=== PATIENT | female | born 1955 | race African-American/Black ===

== ENCOUNTER 2017-08-18 10:27 | Emergency (ER) | payer MEDICARE, MEDICAID ==
[2017-08-18 10:53] LABS: #Eosinphils 0.1 thou/uL (0.0-0.7); #Lymphocytes 2.4 thou/uL (1.20-3.40); #Monocytes 0.4 thou/uL (0.11-0.59); #Neutrophils 3.7 thou/uL (1.40-6.50); %Eosinophils 1.7 % (0.0-10.0); %Lymphocytes 36.2 % (21.0-51.0); %Monocytes 6.2 % (0.0-10.0); Hematocrit 37.6 % (36.0-47.0); Red Blood Cell (RBC) Count 4.17 mill/uL (4.20-5.40); White Blood Cell (WBC) Count 6.7 thou/uL (4.8-10.8)
[2017-08-18 11:19] LABS: Bilirubin Negative (Negative); Blood, Urine Negative (Negative); Glucose, Urine (Dipstick) Negative (Negative); Ketone, Urine Negative (Negative); Nitrite Negative (Negative); Protein, Urine (Dipstick) Negative (Neg-Trace)
[2017-08-18 11:25] LABS: Bacteria/HPF None Seen HPF (None Seen); Hyaline Casts/LPF 0-3 HYALINE CAST LPF (0-3 Hyaline); RBC/HPF 0-3 HPF (0-3); Squamous Epithelial 0-3 HPF (0-3); WBC/HPF 0-3 HPF (0-3)
--- NOTE | 2017-08-18 11:45 | RAD ---
CHEST ONE VIEW: HISTORY: Chest pain. COMPARISON: None. FINDINGS: AP upright chest shows a enlarged cardiac silhouette. The pulmonary vessels and hilum are normal. N o mass. No consolidation. No pneumothorax or osseous abnormalities. IMPRESSION: Cardiomegaly. No congestive heart failure. POS: [facility]
[2017-08-18 11:56] LABS: ALT (SGPT) 9 U/L (8-55); AST (SGOT) 14 U/L (5-34); Alkaline Phosphatase 86 U/L (40-150); Anion Gap 15 mmol/L (10-20); BUN (Urea Nitrogen) 7 mg/dL (9.8-20.1); Bilirubin, Total 0.3 mg/dL (0.2-1.2); CK (CPK) 60 U/L (29-168); Calc. Creatinine Clearance 0 mL/min (70-130); Calcium 8.7 mg/dL (7.8-10.44); Carbon Dioxide 28 mmol/L (23-31); Chloride 99 mmol/L (98-107); Estimated GFR-MDRD 53; Globulin 4.3 g/dL (2.4-3.5); Lipase 5 U/L (8-78); Protein, Total 8.3 g/dL (6.0-8.3)
[2017-08-18 11:59] LABS: Troponin I Less than 0.010 ng/mL (< 0.028)
[2017-08-18] MEDS ORDERED: ISOVUE-370 76%-LOCM 1 ML ONE (13:13)
--- NOTE | 2017-08-18 14:00 | CT ---
CT ABDOMEN AND PELVIS WITH IV CONTRAST: INDICATIONS: History of back pain and abdominal pain. COMPARISON: None. FINDINGS: There is mild subsegmental atelectasis of the left lower lobe and lingula. The gallbladder is surgically absent. The liver, spleen, pancreas, and adrenal glands are normal appearing. The kidneys are unremarkable a ppearance. The appendix is not definitely visualized; however, there are no secondary signs for appendicitis. N o free fluid or enlarged lymph nodes are evident. There are mild calcifications noted involving the distal abdominal aorta and common iliacs. The uterus is surgically absent. The bladder, rectum, and perirectal soft tissues are unremarkable. The unopacified colon reveals no definite acute abnormality. The small bowel is of normal caliber. No drainable fluid collection is evident. No overt lymphadenopathy is demonstrated. There are scattered degenerative and osteoarthritic changes. IMPRESSION: 1. No acute abnormality. 2. Post surgical changes of cholecystectomy and hysterectomy. 3. Nonvisualization of the appendix; however, there are no secondary signs to suggest appendicitis. The appendix may be surgically absent. Recommend correlation with the patient's history. 4. Other chronic findings as above. POS: [facility]
== END 2017-08-18 15:14 | disposition home or self-care (01) ==
LOC: ERS 10:27
DX: R10.9 Unspecified abdominal pain (principal); E11.9 Type 2 diabetes mellitus without complications; F41.9 Anxiety disorder, unspecified; Z87.891 Personal history of nicotine dependence
CPT/HCPCS: 36415; 71010; 74177; 80053; 81003; 81015; 82550; 82553; 83690; 84484; 85025; 93005; 96360; 96372

== ENCOUNTER 2017-08-21 05:34 | Emergency (ER) | payer MEDICARE, MEDICAID ==
[2017-08-21] MEDS ORDERED: Metoclopramide HCl 10 MG/2 ML VIAL ONE (06:19)
[2017-08-21] MEDS ORDERED: Pantoprazole 40 MG VIAL ONE (06:19)
[2017-08-21 06:28] LABS: #Eosinphils 0.1 thou/uL (0.0-0.7); #Lymphocytes 3.6 thou/uL (1.20-3.40); #Monocytes 0.4 thou/uL (0.11-0.59); #Neutrophils 3.6 thou/uL (1.40-6.50); %Basophils 0.6 % (0.0-1.0); %Eosinophils 1.8 % (0.0-10.0); %Lymphocytes 46.4 % (21.0-51.0); %Monocytes 5.2 % (0.0-10.0); Hematocrit 34.3 % (36.0-47.0); Mean Platelet Volume 6.9 fL (7.4-10.4); Red Blood Cell (RBC) Count 3.74 mill/uL (4.20-5.40); White Blood Cell (WBC) Count 7.9 thou/uL (4.8-10.8)
[2017-08-21 06:45] LABS: ALT (SGPT) 7 U/L (8-55); AST (SGOT) 9 U/L (5-34); Alkaline Phosphatase 87 U/L (40-150); Anion Gap 16 mmol/L (10-20); BUN (Urea Nitrogen) 9 mg/dL (9.8-20.1); Bilirubin, Total 0.2 mg/dL (0.2-1.2); CK (CPK) 68 U/L (29-168); Calc. Creatinine Clearance 0 mL/min (70-130); Calcium 8.6 mg/dL (7.8-10.44); Carbon Dioxide 26 mmol/L (23-31); Chloride 101 mmol/L (98-107); Estimated GFR-MDRD 61; Globulin 3.9 g/dL (2.4-3.5); Lipase 11 U/L (8-78); Protein, Total 7.8 g/dL (6.0-8.3)
[2017-08-21 06:49] LABS: Troponin I Less than 0.010 ng/mL (< 0.028)
--- NOTE | 2017-08-21 07:27 | RAD ---
ACUTE ABDOMINAL SERIES: Date: 08/21/17 INDICATION: Nausea and vomiting. FINDINGS: Prominence of cardiac silhouette and right hilum, grossly stable to 07/19/05 radiograph. No free air. Subtle nodular density overlies the right lower lung zone. There is a nonspecific bowel gas pattern. No pathologic dilatation of the bowel loops identified. There is mild degree of differential air flu id levels, nonspecific. IMPRESSION: 1. Differential air fluid levels in the abdomen. This could be on the basis of an obstructive proces s or ileus. No free air. Consider CT exam to further characterize as clinically indicated. 2. Small nodular density overlying the right lower lung zone. Recommend dedicated imaging follow-up to confirm resolution. CODE LN.
[2017-08-21 08:23] LABS: Bilirubin Negative (Negative); Blood, Urine Negative (Negative); Glucose, Urine (Dipstick) Negative (Negative); Ketone, Urine Negative (Negative); Nitrite Negative (Negative); Protein, Urine (Dipstick) Negative (Neg-Trace); Urobilinogen 0.2 mg/dL (0.2-1.0)
[2017-08-21 08:26] LABS: Bacteria/HPF None Seen HPF (None Seen); Hyaline Casts/LPF 0-3 HYALINE CAST LPF (0-3 Hyaline); RBC/HPF 0-3 HPF (0-3); Squamous Epithelial 0-3 HPF (0-3); WBC/HPF 0-3 HPF (0-3)
--- NOTE | 2017-08-21 09:02 | CT ---
CT OF THE ABDOMEN AND PELVIS WITH IV CONTRAST: Date: 08/21/17 INDICATION: Nausea and vomiting. CONTRAST: 100 mL [id number]. COMPARISON: CT dated 08/18/17. FINDINGS: There is enteric contrast within the distal esophagus which may be related to dysmotility or reflux. There is subsegmental atelectasis within both lung bases. The gallbladder is surgically absent. No focal hepatic lesion is evident. The spleen, pancreas, and adrenal glands are normal appearing. The kidneys are normal appearing. Ther e are mild vascular calcifications involving the abdominal aorta. The appendix is not definitely visu alized. The rectum and perirectal soft tissues are unremarkable. Uterus is surgically absent. Small a nd large bowel are of normal caliber. There is diffuse osteopenia. No definite acute osseous abnormality is demonstrated. IMPRESSION: No CT explanation for the patient's nausea and vomiting. POS: [facility]
[2017-08-21] MEDS ORDERED: ISOVUE-370 76%-LOCM 1 ML ONE (17:24)
[2017-08-21] MEDS ORDERED: Iopamidol 370 76% 50 ML VIAL FS ONE (17:24)
== END 2017-08-21 09:06 | disposition home or self-care (01) ==
LOC: ERS 05:34
DX: J20.9 Acute bronchitis, unspecified (principal); G30.9 Alzheimer's disease, unspecified; F02.80 Dementia in other diseases classified elsewhere, unspecified severity, without behavioral disturbance, psychotic disturbance, mood disturbance, and anxiety; I13.0 Hypertensive heart and chronic kidney disease with heart failure and stage 1 through stage 4 chronic kidney disease, or unspecified chronic kidney disease; I50.20 Unspecified systolic (congestive) heart failure; I48.91 Unspecified atrial fibrillation; N18.9 Chronic kidney disease, unspecified; Z79.899 Other long term (current) drug therapy
CPT/HCPCS: 74022; 74177; 80053; 81003; 81015; 82553; 83690; 84484; 85025; 93005; 96365; 96372; 96375; C9113; J2765